=== PATIENT | female | born 1970 | race Caucasian/White ===

== ENCOUNTER → 2017-03-28 15:26 | Outpatient (CLI) | payer BC, SELFPAY ==
[2017-03-31 15:57] LABS: HPV Reflexed? NOT INDICATED
== END ==
PROVIDERS: Visit Provider Obstetrics & Gynecology
DX: Z12.4 Encounter for screening for malignant neoplasm of cervix (principal)
CPT/HCPCS: 88175; G0145

== ENCOUNTER → 2017-05-10 12:10 | Outpatient (CLI) | payer BC, SELFPAY ==
--- NOTE | 2017-05-10 12:20 | HPBI_ITS ---
MAMMOGRAPHY - BILATERAL SCREENING REASON FOR EXAM: Female, 47 years old. Routine annual screening examination. PERTINENT HISTORY: Mother with breast cancer. Aunt with breast cancer. TECHNIQUE: Digital bilateral breast jossy (3D mammographic acquisition) in the CC and MLO projections. 2-D mediolateral oblique (MLO) and craniocaudad (CC) views of both breasts were obtained. CAD: Full Field Digital Mammography with Computer Added Detection was performed. COMPARISON: Comparison is made with prior study dated April 08, 2016 and July 23, 2014. FINDINGS: Breast Composition: The breasts are heterogeneously dense, which may obscure small masses. There are no dominant masses or suspicious calcifications. Stable bilateral benign-appearing axillary lymph nodes. No other significant abnormalities are identified. There has been no significant change since the prior study. HPBI/SCREENING MAMM (CAD), BILAT IMPRESSION: Stable bilateral screening mammogram. Yearly follow-up mammogram recommended. (A) ASSESSMENT CATEGORY: BIRADS Category 2: Benign. A letter regarding these results will be sent to the patient by the facility within 30 days. Approximately 10% of breast cancers are not detected by mammography. A normal mammogram should not delay biopsy of a clinically suspicious abnormality. [id number] Electronically Signed: Bala Urrutia MD at 8:38 EDT Tel [phone], Service support ,
== END ==
PROVIDERS: Family Provider Family Medicine; PCP Family Medicine; Visit Provider Obstetrics & Gynecology
DX: Z12.31 Encounter for screening mammogram for malignant neoplasm of breast (principal); Z80.3 Family history of malignant neoplasm of breast
CPT/HCPCS: 77063; 77067

== ENCOUNTER → 2018-04-17 11:49 | Outpatient (CLI) | payer BC, SELFPAY ==
[2018-04-19 14:40] LABS: HPV Reflexed? NOT INDICATED
== END ==
PROVIDERS: Visit Provider Obstetrics & Gynecology
DX: Z12.4 Encounter for screening for malignant neoplasm of cervix (principal)
CPT/HCPCS: 88175; G0145

== ENCOUNTER → 2018-05-22 10:28 | Outpatient (CLI) | payer BC, SELFPAY ==
--- NOTE | 2018-05-22 10:31 | BI_ITS ---
MAMMOGRAPHY - BILATERAL SCREENING REASON FOR EXAM: Female, 48 years old. Routine annual screening examination. PERTINENT HISTORY: Sister with breast cancer. Aunt with breast cancer. TECHNIQUE: Digital bilateral breast jossy (3D mammographic acquisition) in the CC and MLO projections. 2-D mediolateral oblique (MLO) and craniocaudad (CC) views of both breasts were obtained. CAD: Full Field Digital Mammography with Computer Added Detection was performed. COMPARISON: Comparison is made with prior study dated May 10, 2017 and April 08, 2016. FINDINGS: Breast Composition: The breasts are heterogeneously dense, which may obscure small masses. There are no dominant masses or suspicious calcifications. Stable small benign-appearing bilateral axillary lymph nodes. No other significant abnormalities are identified. There has been no significant change since the prior study. BI/SCREENING MAMM (CAD), BILAT IMPRESSION: Stable bilateral screening mammogram. Yearly follow-up mammogram recommended. (A) ASSESSMENT CATEGORY: BIRADS Category 2: Benign. A letter regarding these results will be sent to the patient by the facility within 30 days. Approximately 10% of breast cancers are not detected by mammography. A normal mammogram should not delay biopsy of a clinically suspicious abnormality. [id number] Electronically Signed: Bala Urrutia, at 12:52 EDT , Service support ,
== END ==
PROVIDERS: Family Provider Family Medicine; PCP Family Medicine; Referring Provider Obstetrics & Gynecology; Visit Provider Obstetrics & Gynecology
DX: Z12.31 Encounter for screening mammogram for malignant neoplasm of breast (principal)
CPT/HCPCS: 77063; 77067

== ENCOUNTER 2018-09-05 06:18 | Day surgery (SDC) | payer BC, SELFPAY ==
[2018-08-31 07:29] VITALS: BMI 29.5
[2018-09-05] VITALS (9 sets, daily range): BP systolic 116–186; BP diastolic 74–116; PULSE 78–107; RESP 14–18; TEMP 36.3–36.8; O2SAT 92–100; BMI 29.2
--- NOTE | 2018-09-05 | IMM_PTH ---
PATIENT: KENJI JOEL LOC: [facility] U#:[id number] AGE/SX: 48/F ROOM: RE09/05/[address]: Dr. Pradeep Davenport MD : 1970 BED: DIS: 09/05/2018 SPEC #: [id number] RECD: 09/05/18 14:07 STATUS: [place] GA #: [id number] CASEY: 09/05/18 00:[address]: Pradeep Davenport DEPT: IMMUNOHISTOCHEMISTRY RECD BY: Julian Mata ENTERED: 09/05/18 14:09 SP TYPE: IMMUNO OTHR DR: Dr. Pearl Mathew MD Tissues: Gastric mucous membrane Procedures: H Pylori (initial) PHYSICIAN & [place] [id number] SPECIMEN INFORMATION: Tissue Source: B. Antrum biopsy Clinical Info: Epigastric pain, GERD Specimen Number: [id number] CPT code: 27484 METHODOLOGY: Deparaffinized sections of prefer/formalin-fixed tissue or PAP/DQ stained slides are incubated with monoclonal/polyclonal antibodies/oligonucleotide probes. Localization is made via biotin free immunoperoxidase method. Appropriate controls are performed and reacted as expected. Results on target cell population are indicated in the following table: RESULTS: ANTIBODY / CLONE RESULT Block B H Pylori (polyclonal) negative These tests were developed and their performance characteristics determined by [facility]. They may not have been cleared or approved by the U.S. Food and Drug Administration. The FDA has determined that such clearance or approval is not necessary. INTERPRETATION: B. Antrum, biopsy: Negative for Helicobacter pylori organisms. SJ:ulices 09/06/18
--- NOTE | 2018-09-05 | EGD_PTH ---
PATIENT: KENJI JOEL LOC: [facility] U#:[id number] AGE/SX: 48/F ROOM: RE09/05/[address]: Dr. Pradeep Davenport MD : 1970 BED: DIS: 09/05/2018 SPEC #: [id number] RECD: 09/05/18 12:48 STATUS: [place] GA #: [id number] CASEY: 09/05/18 00:[address]: Pradeep Davenport DEPT: SURGICAL PATHOLOGY RECD BY: David Cantrell ENTERED: 09/05/18 12:49 SP TYPE: EGD BIOPSY ISSAC DR: Dr. Pearl Mathew MD Tissues: A - Duodenum, NOS B - Gastric mucous membrane C - Esophagus, NOS D - Esophagus, NOS Procedures: Surgery Specimen Level IV HEADER OPERATION: EGD MOD PRE-OP DIAGNOSIS: Epigastric pain, GERD TISSUE SUBMITTED: A. Duodenum biopsy, B. Antrum biopsy, C. Distal esophagus biopsy, D. Mid esophagus biopsy MICROSCOPIC DIAGNOSIS A. Duodenum, biopsy: A superficial fragment of small intestinal mucosa, no pathologic diagnosis. B. Antrum, biopsy: Mild gastritis. C. Distal esophagus, biopsy: Fragments of the gastroesophageal mucosa with chronic inflammation. Intestinal metaplasia (Goblet cell metaplasia) not identified. See Comment D. Mid esophagus, biopsy: Fragments of squamous epithelium, no pathologic diagnosis. SJ:iglesia 09/06/18 COMMENT B. The results of immunohistochemistry for Helicobacter pylori will be reported separately ([id number]). C. Alcian blue/PAS stain with matched control is used in the evaluation of the specimen. MICROSCOPIC DESCRIPTION Slides are reviewed. The specimen shows fragments of gastric mucosa with chronic inflammatory cell infiltrates in the lamina propria consisting of lymphocytes and plasma cells, consistent with mild chronic gastritis. GROSS DESCRIPTION A. Received is one container labeled with the patient name and designated duodenum biopsy. The specimen consists of one irregular fragment of light wise soft tissue that measures 0.3 x 0.2 x 0.1 cm. The specimen is totally submitted in one cassette. B. Received is one container labeled with the patient name and designated antrum biopsy. The specimen consists of one irregular fragment of light wise soft tissue that measures 0.3 x 0.3 x 0.1 cm. The specimen is totally submitted in one cassette. C. Received is one container labeled with the patient name and designated distal esophagus biopsy. The specimen consists of two irregular fragment of light wise soft tissue that in aggregate measures 0.3 x 0.3 x 0.1 cm. The specimen is totally submitted in one cassette. D. Received is one container labeled with the patient name and designated mid esophagus biopsy. The specimen consists of multiple irregular fragment of light wise soft tissue that in aggregate measures 0.4 x 0.4 x 0.1 cm. The specimen is totally submitted in one cassette. /SJ:sp 09/05/18 TC: 3 CPT: 85170 x4, 05354
--- NOTE | 2018-09-05 06:02 | PCM.HP.BLA ---
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 Is patient in pain?: No Allergies No Known Allergies Allergy (Verified 08/31/18 07:30) Medications famotidine 40 mg tablet 40 mg PO QHS 08/31/18 [History Confirmed 08/31/18] [facility] Medical History Gallbladder problem (Acute) Seasonal allergies (Acute) Acid reflux (Acute) Anxiety (Acute) Surgical History History of placement of ear tubes (Acute) Family History Mother Breast cancer Hypertension High cholesterol Father High cholesterol Hypertension Social History (Updated 08/31/18 @ 08:05 by Pradeep Davenport MD) Smoking Status: Former smoker alcohol intake: current alcohol intake frequency: a few times a month substance use type: does not use caffeine: No what type of physical activity do you participate in: none frequency: does not exercise HPI HPI HPI: KENJI JOEL, is a 48 F who presents to the office today for HPI HPI Surgical H&P: Yes HPI: KENJI JOEL, is a 48 F who presents to the office today for surgical consultation regarding episodes of epigastric right upper quadrant pain and bloating. The patient is referred by Dr. Pearl Mathew and a written compromise surgical consult and recommendations will return to her. In May the patient had a sudden onset of what felt like a gas pocket in the right upper quadrant. She wanted to try to relieve it by burping but was unable to. 2 months later she had another episode and that when lasted for 5 to 6 hours. She did not take any medications in attempt to resolve it it simply resolved on its own. Over the past year however the patient has additionally noted increased symptoms of indigestion and reflux. In fact recently she has been initiated on famotidine. She denies any known history of peptic ulcer disease. No bright red blood per rectum or melena. On July 12, 2018 she had a right upper quadrant gallbladder ultrasound. No gallstones were identified. There is a suspicion of gallbladder wall thickening at 3.8 mm but no pericholecystic fluid. Common bile duct measured 4 mm. My understanding is that laboratory was not remarkable but I do not have copies of that. On that same day July 12 she had a hepatobiliary scan. She states that she was completely asymptomatic throughout that scan. Her ejection fraction was 29%. Abnormal is felt to be a low 38%. The patient has changed to a gluten-free diet and feels better. She has had an intentional 7 pound weight loss. She denies any current pain at this moment. ROS General General: Yes weight change; no appetite, fatigue, colon cancer, breast cancer or weakness HEENT HEENT: No difficulty swallowing, eye injury, eye surgery, swollen glands or hoarseness Endo Endocrine: No thyroid disease, diabetes mellitus, thyroid cancer, Hair loss, heat intolerance or cold intolerance Skin Skin: No rash or changing moles Musc Musculoskeletal: No back problems, arthritis, rheumatoid arthritis, gout or joint pain Cardio Cardiovascular: No murmur, pacemaker, heart disease, atrial fibrillation, high blood pressure, heart attack, heart stent, palpitations, shortness of breat with exertion or chest pain Psych Psychiatric: Yes anxiety; no depression or hearing voices Resp Respiratory: No shortness of breath, No sleep apnea, No cough, No COPD, No asthma, No emphysema, No wheezing Gastro Gastrointestinal: No abdominal pain, No nausea or vomiting, No diarrhea, No constipation, No blood in stool, Yes acid reflux, No hemorrhoids, Yes ulcers, No gallbladder problem, No black,tarry stools Andrew Hematologic: No blood thinners, No blood disorders, No bleeding, No anemia, No blood clots Neuro Neurologic: No system reviewed and no additional complaints, except as docu, No as per HPI, No abnormal walking, No abnormal hearing, No abnormal movements, No abnormal speech, No behavioral changes, No burning sensations, No confusion, No seizure-like activity, No unsteadiness, No dizziness, No localized weakness, No frequent falls, No headache(s), No lack of coordination, No loss of vision, No memory loss, No numbness, No other visual disturbances, No radiating pain, No restless legs, No sensory deficit, No fainting, No tingling, No tremor(s), No weakness, No other Exam Const General: cooperative, healthy appearing, comfortable, no acute distress Nutritional Appearance: average body habitus Orientation: alert, awake [facility] Head: normal to inspection Resp Effort & Inspection: normal respiratory effort Auscultation: clear to auscultation bilaterally Cardio Rate: regular rate Rhythm: regular rhythm Heart Sounds: no murmurs GI Palpation: soft, no hepatosplenomegaly Auscultation: normal bowel sounds Neuro General: alert, awake Cognition: normal cognition Extrem General: no calf tenderness bilaterally Psych Affect: normal affect Assessment & Plan Problems 1. Gastroesophageal reflux disease, esophagitis presence not specified K21.9 2. Gallbladder problem K82.9 Plan I had an extensive discussion with the patient regarding her symptom complex. Although her symptoms were colicky in nature her ultrasound did not demonstrate gallstones. She had no elicitation of similar symptoms when she received a CCK for her HIDA scan. She does have progressive symptoms of reflux that required new medication. I have offered her a esophagogastroduodenoscopy with possible biopsy as an initial investigation. If that is unremarkable and I have offered her lap scopic cholecystectomy with anticipated cholangiography. She is aware of the technique, benefit, risks, alternatives. She is aware that laparoscopic cholecystectomy based upon abnormal hepatobiliary imaging has approximately 50% failure rate of improving patient condition. She has had an opportunity of asking and have questions answered. I very much appreciate the kind opportunity of assisting with her surgical care We will schedule proceed at her discretion CC: Dr. Pearl Davenport M.D., F.A.C.S. Medications New: famotidine (Pepcid) 40 mg PO QHS Coding Level of Care Code 20883 Diagnoses Gastroesophageal reflux disease, esophagitis presence not specified K21.9 ??Esophagitis presence: esophagitis presence not specified Gallbladder problem K82.9 08/31/18 0805 <Electronically signed by Pradeep Davenport MD> Date Pradeep Davenport MD I have re-examined the patient. There are no clinical changes since date of exam.
[2018-09-05 07:06] LABS: Internal QC Validated? YES +Cl - CLEAR BKGD; Pregnancy, Urine Negative Negative
--- NOTE | 2018-09-05 07:44 | OP.ENDO_ITS ---
09/05/2018 Pearl Mathew Md Re : Upper GI endoscopy procedure for Smita Valencia Dear [place] This procedure was performed on Wednesday, September 05, 2018. My impressions and recommendations are as follows: Impressions : - Normal esophagus. Biopsied. - Normal stomach. Biopsied. - Normal examined duodenum. Biopsied. Recommendations : - Discharge patient to home. - Resume previous diet. - Continue present medications. - Telephone my office for pathology results in 1 week. My findings are described in the full procedure note, which is enclosed. If I can be of further assistance, please feel free to contact me at Doctor phone number(s): Work: . Sincerely, Pradeep Davenport MD 09/05/2018 7:43:54 AM This report has been signed electronically.
== END 2018-09-05 08:40 | disposition home or self-care (01) ==
LOC: EN 06:21 → AC 06:22
PROVIDERS: Family Provider Family Medicine; PCP Family Medicine; Referring Provider Family Medicine; Visit Provider Surgery
PROC: (CPT 43239; principal; 2018-09-05 07:25)
DX: R10.13 Epigastric pain (principal); R10.11 Right upper quadrant pain; K82.9 Disease of gallbladder, unspecified; K21.9 Gastro-esophageal reflux disease without esophagitis; Z87.891 Personal history of nicotine dependence
CPT/HCPCS: 43239; 81025; 88305; 88342; 99152; 99153; J7120

== ENCOUNTER 2018-10-26 08:47 | Day surgery (SDC) | payer BC, SELFPAY ==
[2018-09-05 06:57] VITALS: BMI 29.2
[2018-10-23 08:58] VITALS: BMI 29.2
--- NOTE | 2018-10-23 09:52 | EKG12_ITS ---
Test Reason : PRE-OP Blood Pressure : / mmHG Vent. Rate : 082 BPM Atrial Rate : 082 BPM P-R Int : 128 ms QRS Dur : 076 ms QT Int : 336 ms P-R-T Axes : 035 014 018 degrees QTc Int : 392 ms Normal sinus rhythm Normal ECG Confirmed by KAT HUTTON, MANDA ([id number]), supervising editor news reel CARLOTA PINEDA ([id number]) on 10/24/2018 11:41:06 AM Referred By: Pradeep Davenport Confirmed By:MANDA STEPHENS MD
[2018-10-23 10:05] LABS: Hematocrit 45.1 % (37-47); Hemoglobin 14.4 g/dL (12.0-15.0); Mean Corp Hgb Conc 31.9 g/dL (32-36); Mean Corpuscular Hgb 28.9 pg (27.0-32.0); Mean Corpuscular Volume 90.4 fL (81-99); Mean Platelet Vol. 10.1 fl (6.2-12.0); Platelet Count 363 K/mm3 (150-450); RBC Distribution Width CV 12.5 % (11.6-14.6); RBC Distribution Width SD 41.3 fl (35.1-43.9); Red Blood Count 4.99 M/mm3 (4.2-5.4); White Blood Count 6.5 K/mm3 (4.4-11.0)
[2018-10-23 10:51] LABS: Anion Gap 4 (5-15); BUN 12 mg/dL (7-18); BUN/Creat Ratio 13.9 RATIO (10-20); Calcium,Total 9.7 mg/dL (8.5-10.1); Chloride 106 mmol/L (98-107); Creatinine, Serum 0.86 mg/dL (0.55-1.02); EST Glomerular Filtration Rate 75 mL/min (>60); Est Glom Filt Rate - Afr Amer 91 mL/min (>60); Glucose 82 mg/dL (74-106); Sodium Level 138 mmol/L (136-145)
[2018-10-26] VITALS (10 sets, daily range): BP systolic 109–139; BP diastolic 61–81; PULSE 82–102; RESP 10–18; TEMP 36.3–37.2; O2SAT 97–100; BMI 27.5
[2018-10-26 09:05] LABS: Internal QC Validated? YES +Cl - CLEAR BKGD; Pregnancy, Urine Negative Negative
[2018-10-26] MEDS: Lactated Ringers 1,000 ML 75 ML IV ×2 (09:15→12:58)
--- NOTE | 2018-10-26 10:49 | HP.PCM_ITS ---
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 Is patient in pain?: No Allergies cold Allergy (Uncoded 10/23/18 08:42) Hives Medications famotidine 40 mg tablet 40 mg PO QHS 08/31/18 [History Confirmed 10/23/18] [facility] Medical History Gallbladder problem (Acute) Seasonal allergies (Acute) Acid reflux (Acute) Anxiety (Acute) Surgical History History of placement of ear tubes (Acute) Family History Mother Breast cancer Hypertension High cholesterol Father High cholesterol Hypertension Social History (Updated 10/23/18 @ 15:11 by Minna Mckeon PA-C) Smoking Status: Former smoker alcohol intake: current alcohol intake frequency: a few times a month substance use type: does not use caffeine: No what type of physical activity do you participate in: none frequency: does not exercise HPI HPI HPI: KENJI JOEL, is a 48 F who presents to the office today for HPI HPI Surgical H&P: Yes HPI: KENJI JOEL, is a 48 F who presents to the office today for an update history and physical for an upcoming surgical procedure. Patient denies recent hospitalizations or illnesses. Patient denies previous myocardial infarction, stroke or blood clots. Patient denies being seen by blending tank tender previously. Patient notes she is anxious for the procedure. Patient denies previous complications/side effects from anesthesia. Patient's previous history per Dr. Davenport: KENJI JOEL, is a 48 F who presents to the office today for surgical consultation regarding episodes of epigastric right upper quadrant pain and bloating. The patient is referred by Dr. Pearl Mathew and a written compromise surgical consult and recommendations will return to her. In May the patient had a sudden onset of what felt like a gas pocket in the right upper quadrant. She wanted to try to relieve it by burping but was unable to. 2 months later she had another episode and that when lasted for 5 to 6 hours. She did not take any medications in attempt to resolve it it simply resolved on its own. Over the past year however the patient has additionally noted increased symptoms of indigestion and reflux. In fact recently she has been initiated on famotidine. She denies any known history of peptic ulcer disease. No bright red blood per rectum or melena. On July 12, 2018 she had a right upper quadrant gallbladder ultrasound. No gallstones were identified. There is a suspicion of gallbladder wall thickening at 3.8 mm but no pericholecystic fluid. Common bile duct measured 4 mm. My u nderstanding is that laboratory was not remarkable but I do not have copies of that. On that same day July 12 she had a hepatobiliary scan. She states that she was completely asymptomatic throughout that scan. Her ejection fraction was 29%. Abnormal is felt to be a low 38%. The patient has changed to a gluten-free diet and feels better. She has had an intentional 7 pound weight loss. She denies any current pain at this moment. ROS General General: Yes weight change; no appetite, fatigue, colon cancer, breast cancer or weakness HEENT HEENT: No difficulty swallowing, eye injury, eye surgery, swollen glands or hoarseness Endo Endocrine: No thyroid disease, diabetes mellitus, thyroid cancer, Hair loss, heat intolerance or cold intolerance Skin Skin: No rash or changing moles Musc Musculoskeletal: No back problems, arthritis, rheumatoid arthritis, gout or joint pain Cardio Cardiovascular: No murmur, pacemaker, heart disease, atrial fibrillation, high blood pressure, heart attack, heart stent, palpitations, shortness of breat with exertion or chest pain Psych Psychiatric: Yes anxiety; no depression or hearing voices Resp Respiratory: No shortness of breath, No sleep apnea, No cough, No COPD, No asthma, No emphysema, No wheezing Gastro Gastrointestinal: No abdominal pain, No nausea or vomiting, No diarrhea, No constipation, No blood in stool, Yes acid reflux, No hemorrhoids, Yes ulcers, No gallbladder problem, No black,tarry stools Andrew Hematologic: No blood thinners, No blood disorders, No bleeding, No anemia, No blood clots Neuro Neurologic: No weakness Exam Const General: cooperative, healthy appearing, comfortable, no acute distress HENMT Head: normal to inspection Eyes General: appearance normal, both eyes and all related structures Neck Neck: normal visual inspection Neck mass: No Resp Effort & Inspection: normal respiratory effort Auscultation: clear to auscultation bilaterally Cardio Rate: regular rate Rhythm: regular rhythm Heart Sounds: no murmurs GI Inspection: normal to inspection Palpation: soft Auscultation: normal bowel sounds Skin General: no rashes or lesions noted Neuro General: no focal motor deficits, CN's II-XI intact bilaterally Extrem General: normal to inspection Psych Appearance: grossly normal Affect: normal affect Assessment & Plan Problems 1. Epigastric abdominal pain R10.[address] Davenport will plan to perform a laparoscopic cholecystectomy with intraoperative cholangiogram. Procedure details, risks and benefits have been reviewed. Patient has had the opportunity to ask and have questions answered. Patient verbally understands and agrees with the plan. Coding Level of Care Code No Charge Diagnoses Epigastric abdominal pain R10.13 Comment Update H&P 10/23/18 3928 <Electronically signed by Minna stephens PA-C> Date _ Minna Mckeon PA-C Cosigner Signature: Date (if applicable) CC: ~ I have re-examined the patient. There are no clinical changes since date of exam.
[2018-10-26] MEDS: Cefazolin 2 GM in 0.9% Normal Saline 100 ML IV (10:57)
--- NOTE | 2018-10-26 11:00 | GALL_PTH ---
PATIENT: KENJI JOEL LOC: [facility] [place] U#:[id number] AGE/SX: 48/F ROOM: RE10/26/[address]: Dr. Pradeep Davenport MD : 1970 BED: DIS: 10/26/2018 SPEC #: [id number] RECD: 10/26/18 14:26 STATUS: [place] GA #: [id number] CASEY: 10/26/18 11:[address]: Pradeep Davenport DEPT: SURGICAL PATHOLOGY RECD BY: Caleb Kenney ENTERED: 10/26/18 14:27 SP TYPE: NEGRITA DAVENPORT DR: Dr. Pearl Mathew MD Tissues: Gallbladder, NOS Procedures: Surgery Specimen Level III HEADER OPERATION: Laparoscopic cholecystectomy with IOC PRE-OP DIAGNOSIS: Epigastric abdominal pain TISSUE SUBMITTED: Gallbladder MICROSCOPIC DIAGNOSIS Gallbladder, cholecystectomy: Chronic cholecystitis. AM:greg 10/27/18 MICROSCOPIC DESCRIPTION Slides are reviewed. GROSS DESCRIPTION Received is one container labeled with the patient's name and designated gallbladder. The specimen consists of a gallbladder measuring 7 cm in length and up to 2.5 cm in diameter. The external surface is pink-wise, smooth and glistening for the most part. Focally it is granular, hemorrhagic and contains cautery artifact. The gallbladder contains green-yellow mucoid bile. No stones are identified in the container or in the gallbladder. The mucosa is bile-stained and without any mass lesions. The gallbladder wall measures up to 0.2 cm in thickness. Generation Mechanic Helper sections from the gallbladder and the cystic duct are submitted in one cassette. / SJ:rg 10/26/18 TC:3 CPT: 99500
--- NOTE | 2018-10-26 11:16 | RAD_ITS ---
PROCEDURE: INTRAOPERATIVE CHOLANGIOGRAM. REASON FOR EXAM: Female, 48 years old. Cholecystectomy. FLUOROSCOPY TIME (if supplied): (0:25) minutes/seconds. RADIATION DOSAGE (If Supplied By Facility): 12.81 mGy TECHNIQUE: Real-time fluoroscopy was provided during intraoperative contrast infusion via the cystic duct. 2 cine runs comprising a total of 181 images are submitted. COMPARISON: None.. FINDINGS: Initial cine run does not demonstrate a contrast injection. A surgical clip projects in the right upper quadrant. A second run shows normal caliber intra-and extrahepatic bile ducts. There is moderately severe concentric narrowing at the distal common bile duct/sphincter of Gerardo with very slow contrast flow to the duodenum. No filling defects seen to indicate a retained stone, however. RAD/Cholangiogram/ O R,Initial IMPRESSION: No significant intra or extrahepatic bile duct dilatation. No retained stone. Moderately severe concentric narrowing seen at the distal common bile duct/sphincter of Gerardo with very slow antegrade emptying. Electronically Signed: Fer Gutiérrez MD at 16:45 EDT , Service support ,
[2018-10-26] MEDS: Bupivacaine Mpf 0.5% 30 ML VIAL (12:04)
--- NOTE | 2018-10-26 12:07 | DCINST_ITS ---
Discharge Diet: Light diet - advance as tolerated - if you have questions about your diet instructions, please talk to you doctor. Discharge Activity: May Not Drive - for 3-5days or while taking narcotic pain medicine. May shower in (days): 1 Lifting Restrictions: 10 pounds Call your doctor if your incision/area has: Continuous Slow Oozing, Sudden Increased Bleeding, Increased Pain/ Swelling, Increased Redness, Foul Smelling Discharge Call your doctor if you observe: Fever of 101 or Higher Suture Line Care: Avoid Pulling/Pushing, Avoid Pinching/Bending Additional Dressing/Incision Instructions:: Change or remove dressing in 4 days. Leave steri-strips in place for 1 week. Allergies/Adverse Reactions: Allergies cold Allergy (Uncoded 10/26/18 08:55) Hives Medications to take at Discharge famotidine 40 mg tablet 40 mg PO QHS 08/31/18 Orders to be completed after discharge: 12 Lead EKG [[facility]] Time Frame: 10/19/18, Facility: [facility], Location: Cardiovascular Services Basic Metabolic Profile (BMP) Time Frame: 10/19/18, Facility: [facility], Location: Laboratory CBC-Complete Blood Cnt No Diff Time Frame: 10/19/18, Facility: [facility], Location: Laboratory Primary Care Physician: Pearl Mathew MD [Primary Care Provider] - Test Results: Test results from this visit will be discussed in further detail at your follow- up appointment, if applicable. Please Follow Up With: Pradeep Davenport MD - [phone] When: Call to make an appointment to be seen in about 10 days.
--- NOTE | 2018-10-26 12:07 | PCM.OPRPT ---
Problem List (1) Gallbladder problem Status: Acute Report of Operation Date of Procedure: 10/26/18 Pre-Operative Diagnosis: Biliary dyskinesia Post-Operative Diagnosis: Same Surgery/Procedure Performed:: Laparoscopic cholecystectomy with cholangiograms Description of Surgical Findings:: Timeout and informed consent was obtained. 48-year-old female taken out from placement table underwent general endotracheal intubation anesthesia. The abdomen was sterilely prepped and draped. 2 g of Ancef were given intravenously preoperatively. 0.5% Marcaine was used as a local anesthetic. Skin sites were pre-anesthetized. A total of 30 cc was used. A vertical infraumbilical incision was created holding sutures of 0 Vicryl placed varies needle inserted saline drop test performed the abdomen was insufflated with CO2 to a pressure of 10 mm trocar pressure. Maria T trocar inserted 10 laps of inserted no concern trocar injuries under direct visualization 5-minute trochars were placed in the epigastric right upper quadrant right lateral upper quadrant. Inspection revealed adhesions of omentum to the gallbladder. There was no acute swelling or fluid. No evidence of other superficial abnormality. The gallbladder was distracted the adhesions were sharply and bluntly dissected free. This gain access to the infundibular area careful blunt dissection was performed until clearly the cystic duct cystic artery and hepatocystic angle was fully identified. Hem-o-bernardino clip was placed on the cystic duct stump prior to incising it and through a 14-gauge Angiocath clench Flex catheter was inserted. Fluoroscopically control claims grams were obtained demonstrating normal ductal anatomy and flow just into the small bowel was identified. No evidence of any intraluminal filling defect. The cholangiogram catheter was removed 2 hemo-lock clips were placed on the cystic duct stump prior to transecting it. The cystic artery was clipped twice approximately prior to transecting it. Further gallbladder peritoneum was secured with a hemo-lock clip. The gallbladder was carefully dissected free from the liver bed using electrocautery. Complete hemostasis was intact. The gallbladder was released with no spillage. It was placed in a retrieval bag. The right upper quadrant was irrigated and aspirated free of excess fluid. Complete hemostasis was noted. The gallbladder was exited at the umbilicus. The gallbladder bed again inspected and again noted to be nicely hemostatic. The remaining trochars were removed under visualization and the abdomen was allowed to deflate of the CO2. The fascia at the umbilicus approximate interrupted 0 Vicryl [id number] suture. Skin edges approximate interrupted 4 Monocryl subdermal stitches. Steri-Strips and Telfa and OpSite dressings were applied. Sponge and instrument and needle counts were reported the surgeon to be correct. Specimen gallbladder. Drains none. Blood loss minimal. Pradeep Davenport M.D., F.A.C.S. Type of Anesthesia:: General Anesthesiologist: Brook Beavers
[2018-10-26] MEDS: Acetaminophen 325 MG Tablet 650 MG PO (14:09)
== END 2018-10-26 15:05 | disposition home or self-care (01) ==
LOC: SDC 08:48 → AC 08:48
PROVIDERS: Anesthesiology; Family Provider Family Medicine; PCP Family Medicine; Referring Provider Surgery; Visit Provider Surgery
PROC: (CPT 47610; principal; 2018-10-26 10:40)
DX: K81.1 Chronic cholecystitis (principal); K21.9 Gastro-esophageal reflux disease without esophagitis; Z87.891 Personal history of nicotine dependence
CPT/HCPCS: 00790; 47563; 36415; 74300; 76000; 80048; 81025; 85027; 88304; 93005; J7120; J2405

== ENCOUNTER → 2019-07-27 15:08 | Outpatient (CLI) | payer BC, SELFPAY ==
[2019-07-27 15:08] VITALS: BMI 27.5
[2019-08-01 20:45] LABS: HPV APTIMA, High Risk Negative (Negative)
== END ==
PROVIDERS: PCP Family Medicine; Visit Provider Obstetrics & Gynecology
DX: Z12.4 Encounter for screening for malignant neoplasm of cervix (principal)
CPT/HCPCS: 87624; 88175; G0145

== ENCOUNTER → 2019-08-22 10:37 | Outpatient (CLI) | payer BC, SELFPAY ==
[2019-07-27 15:08] VITALS: BMI 27.5
--- NOTE | 2019-08-22 10:40 | BI_ITS ---
MAMMOGRAPHY - BILATERAL SCREENING REASON FOR EXAM: Female, 49 years old. Routine annual screening examination. PERTINENT HISTORY: Sister with breast cancer. Aunt with breast cancer. TECHNIQUE: Digital bilateral breast jesus (3D mammographic acquisition) in the CC and MLO projections. 2-D mediolateral oblique (MLO) and craniocaudad (CC) views of both breasts were obtained. CAD: Full Field Digital Mammography with Computer Added Detection was performed. COMPARISON: Comparison is made with prior examination May 22, 2018 and May 10, 2017. FINDINGS: Breast Composition: The breasts are heterogeneously dense, which may obscure small masses. There are no dominant masses or suspicious calcifications. Stable benign-appearing bilateral axillary lymph nodes. No other significant abnormalities are identified. There has been no significant change since the prior study. BI/SCREEN MAMM (CAD) W/JESUS BILAT IMPRESSION: Stable bilateral screening mammogram. Yearly follow-up mammogram recommended. (A) ASSESSMENT CATEGORY: BIRADS Category 2: Benign. A letter regarding these results will be sent to the patient by the facility within 30 days. Approximately 10% of breast cancers are not detected by mammography. A normal mammogram should not delay biopsy of a clinically suspicious abnormality. [id number] Electronically Signed: Bala Urrutia, at 11:36 EDT , Service support ,
== END ==
PROVIDERS: PCP Family Medicine; Referring Provider Obstetrics & Gynecology; Visit Provider Obstetrics & Gynecology
DX: Z12.31 Encounter for screening mammogram for malignant neoplasm of breast (principal); Z80.3 Family history of malignant neoplasm of breast
CPT/HCPCS: 77063; 77067

== ENCOUNTER → 2020-09-16 07:35 | Outpatient (CLI) | payer OTHER, SELFPAY ==
[2019-07-27 15:08] VITALS: BMI 27.5
--- NOTE | 2020-09-16 07:37 | BI_ITS ---
MAMMOGRAPHY - BILATERAL SCREENING REASON FOR EXAM: Female, 50 years old. Routine annual screening examination. PERTINENT HISTORY: Mother with breast cancer. On post breast cancer. TECHNIQUE: Digital bilateral breast jesus (3D mammographic acquisition) in the CC and MLO projections. 2-D mediolateral oblique (MLO) and craniocaudad (CC) views of both breasts were obtained. CAD: Full Field Digital Mammography with Computer Added Detection was performed. COMPARISON: Comparison is made with prior examination dated 08/22/2019 and 05/22/2018. FINDINGS: Breast Composition: The breasts are heterogeneously dense, which may obscure small masses. There are no dominant masses or suspicious calcifications. Stable benign appearing bilateral axillary. No other significant abnormalities are identified. There has been no significant change since the prior study. BI/SCRN MAMM (CAD)W/JESUS BILAT IMPRESSION: Stable bilateral screening mammogram. Yearly follow-up mammogram recommended. (A) ASSESSMENT CATEGORY: BIRADS Category 2: Benign. A letter regarding these results will be sent to the patient by the facility within 30 days. Approximately 10% of breast cancers are not detected by mammography. A normal mammogram should not delay biopsy of a clinically suspicious abnormality. [id number] Electronically Signed: Bala Urrutia MD at 8:42 EDT , Service support ,
--- NOTE | 2020-09-16 08:05 | BD_ITS ---
STUDY: DUAL ENERGY X-RAY ABSORPTIOMETRY / DXA REASON FOR EXAM: Female, 50 years old. Z92.0 TECHNIQUE: Bone Mineral Density (BMD) measurements of lumbar spine and bilateral hips were obtained. COMPARISON: None. FINDINGS: Lumbar Spine (L1-L4): g/cm2 (1.065) / T-score (0.1) / Z-score (0.8) Findings are suggestive of normal bone density with a low fracture risk. Left Femur Total: g/cm2 (1.025) / T-score (0.7) / Z-score (1.1) Left Femoral Neck: g/cm2 (0.846) / T-score (0.0) / Z-score (0.6) Right Femur Total: g/cm2 (0.979) / T-score (0.3) / Z-score (0.7) Right Femoral Neck: g/cm2 (0.876) / T-score (0.2) / Z-score (0.9) BD/Dexa Bone Density Study IMPRESSION: The patient is considered normal as outlined below according to World Manuel Organization (WHO) criteria with a low fracture risk. Reference Information: The T-score is the number of standard deviations above or below the standard which is normal for young adults at their peak bone mineral density. The World Health Organization (WHO) interprets the T-scores as follows: Above -1 Normal bone density Between -1 and -2.5 Osteopenia Equal to / or below -2.5 Osteoporosis As a practical clinical guideline, osteopenia may be graded as follows: Mild -1 through -1.5 Moderate -1.6 through -2.0 Severe -2.1 through -2.4 The Z-score is the number of standard deviations above or below age-matched controls. A Z-score of less than -1.5 would be considered abnormal. References: 1. NIH Osteoporosis and Related Bone Diseases www osteo.org 2. International Society for Clinical Densitometry www iscd.org 3. National Osteoporosis Foundation www nof.org Electronically Signed: Bala Urrutia MD at 15:03 EDT , Service support ,
== END ==
PROVIDERS: PCP Family Medicine; Referring Provider Obstetrics & Gynecology; Visit Provider Obstetrics & Gynecology
DX: Z92.0 Personal history of contraception (principal); Z12.31 Encounter for screening mammogram for malignant neoplasm of breast; Z80.3 Family history of malignant neoplasm of breast
CPT/HCPCS: 77063; 77067; 77080

== ENCOUNTER → 2020-10-17 10:04 | Outpatient (CLI) | payer OTHER, SELFPAY ==
--- NOTE | 2020-10-17 10:45 | MRI_ITS ---
STUDY: MRI LUMBAR SPINE WITHOUT CONTRAST REASON FOR EXAM: Female, 50 years old. acquired spondylolisthesis -- radiculopathy TECHNIQUE: Standardized fat and water weighted pulse sequences were obtained in the sagittal and axial planes. COMPARISON: None FINDINGS: T12-L1: Normal endplates. Normal disc height, hydration and morphology. Normal bilateral facet joints. Normal central canal and bilateral lateral recesses. Normal bilateral intervertebral neural foramina. Normal lumbar lordosis. Mild levoscoliosis centered at L4/L5. Normal conus medullaris that terminates at the L1/L2. Marrow regeneration suggestive of chronic hypoventilation, chronic lung disease, or chronic anemia. L1-2: Normal endplates. Normal disc height, hydration and morphology. Normal bilateral facet joints. Normal central canal and bilateral lateral recesses. Normal bilateral intervertebral neural foramina. L2-3: Normal endplates. Normal disc height, hydration and morphology. Normal bilateral facet joints. Normal central canal and bilateral lateral recesses. Normal bilateral intervertebral neural foramina. L3-4: Normal endplates. Normal disc height, hydration and morphology. Normal bilateral facet joints. Normal central canal and bilateral lateral recesses. Normal bilateral intervertebral neural foramina. L4-5: 5 mm retrolisthesis of L4 on L5 with no spinal stenosis or neural foraminal stenosis. L5-S1: Bilateral pars defects of the L5 vertebra consistent with L5 spondylolysis. 5 mm of anterolisthesis of L5 on S1 consistent with grade 1 spondylolisthesis. Mild broad disc protrusion produces mild spinal stenosis but severe bilateral neural foraminal stenosis with effacement of the exiting L5 nerve roots bilaterally. Normal visualized sacral ala. Normal visualized paraspinous soft tissue structures. MRI/Spine Lumbar (Routine) IMPRESSION: 1. L5 spondylolysis with grade 1 spondylolisthesis of L5 on S1 with mild spinal stenosis but severe bilateral neural foraminal stenosis with effacement of the L5 nerve roots bilaterally. 2. Marrow regeneration Electronically Signed: Lei Khan MD at 11:26 EDT Tel , Service support ,
== END ==
PROVIDERS: PCP Family Medicine
DX: M43.17 Spondylolisthesis, lumbosacral region (principal); M54.17 Radiculopathy, lumbosacral region; M47.817 Spondylosis without myelopathy or radiculopathy, lumbosacral region
CPT/HCPCS: 72148

== ENCOUNTER 2020-12-19 11:30 | Outpatient (RCR) | payer OTHER, SELFPAY ==
--- NOTE | 2020-10-10 15:06 | HP.PTEVAL ---
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 Date of Evaluation: 10/10/20 Physical Therapist: DANDY Parmar - Visit Plan Frequency: 2x /Week Duration: 2 Months Plan: 2X/ week for 8 weeks for PT with ALL supine and progress to sitting and standing core stability, L IT band stretching, L Hip strengthening with HEP. HEP: PT with 90/90 with heel tap to the 5 inch block on mat table - Subjective Pt had X-rays last spring had mild Spondylolithesis but she has nerve pain on the side of her R hip. It is not constant. It increases in pain with standing or walking too long. Pt reports that mid way of her calf and 3 larger toes on the R are numb every time she stands and walks. She has the feeling that water is dripping down her leg on the R side. 2 stress fractures in the vertebrea and they think that is what caused it to slip. She had a first round of PT and that did not work. They did a lot of floor exercises but it was too much to do daily. She has not done her HEP PT this week. Her MRI is Oct 17. Pt was sent here by pain clinic Dr. Pt is fine if she is sitting. She did way too much yesterday and was in a lot of pain. She uses pain as her guide. R hip and Glut is constant pain. Sitting helps to change her pain. ICE helps to soothe her pain. Pt generally does not wake her up at night. She sleeps with a pillow between her knees. Sleeping on her R side is most comfortable. She started back pain 5 years ago but progressivly getting worse. Last year this fall she was walking and running a lot. The LBP is helped with PT but nothing is helping the nerve part. - Pain back pain Pain Intensity (Out of 10): 2 Pain Intensity Range: 6, 8 R Glute/hip Pain Intensity (Out of 10): 4 Pain Intensity Range: 8 - Objective Gait: Walks with a normal gait pattern. LE MMT: R hip flex 4-/5 and L 4/5, B knee ext 4/5, B knee flex 4/5, R hip abd 4-/5 and l hip abd 4+/5, R hip ext 3-/4 and L hip ext 3+/5. pt is able to walk on heels and toes. Trunk AROM: flexion 100%, Ext 50%, SB B 75%, Rot B 75%. Patellar DTR's: 2+/3 B. SLUMP test: -B. pt has tightness on the R IT BAND and hip flexor. Good B piriformis length. Pt has tenderness along Both PSIS. Pt exhibits some weakness with PT and LE movements - Balance/Special Test Scores Oswestry Low Back Score: 18 - Goals Goal 1:: I HEP Goal Time Frame: 4-6 Weeks Goal 2:: Decrease R hip pain by 50% with standing activities Goal Time Frame: 6-8 Weeks Goal 3:: Increase R LE strength by 1/2 muscle grade (at the time of the eval: LE MMT: R hip flex 4-/5 and L 4/5, B knee ext 4/5, B knee flex 4/5, R hip abd 4-/5 and l hip abd 4+/5, R hip ext 3-/4 and L hip ext 3+/5. pt is able to walk on heels and toes) - Rehabilitation Potential Rehabilitation Potential: Good - Anticipated Interventions Patient/Client Instruction: Educate patient on: Condition, Plan of Care For the Purpose of:: To decrease pain, To improve nutrient delivery to tissue, To improve muscle performance and motor function, To increase tolerance to activity/condition/position, To improve performance and independence with ADL's, To decrease level of supervision to perform tasks, To improve ability of physical actions for home/community/work/leisure, To improve health of tissue, To decrease soft tissue restriction, To increase flexibility/ROM Therapeutic Exercise to Include: Strength training, Body mechanics, Postural training, Flexibilty training, Gait and locomotor training, Neuromotor development, Active ROM, Dynamic Lumbar Stabilization For the Purpose of:: To decrease pain, To increase ROM, To improve nutrient delivery to tissue, To improve muscle performance and motor function, To improve ability to perform ADL's, To increase tolerance to activity/condition/position, To improve performance and independence with ADL's, To decrease level of supervision to perform tasks, To improve ability of physical actions for home/community/work/leisure, To improve health of tissue, To decrease soft tissue restriction, To increase flexibility/ROM Manual Therapy Techniques to Include: Passive ROM, Soft tissue mobilization For the Purpose of:: To decrease pain, To increase ROM, To improve nutrient delivery to tissue, To improve muscle performance and motor function, To improve ability to perform ADL's Thank you for the opportunity to evaluate your patient. For Medicare and Medicare HMO plans, please review the plan of care and approve it. It will need to be FAXED BACK to us at [phone] for Medicare purposes. For Medicare only, by signing this I certify the plan of care. Please let me know if there are questions or concerns regarding this plan of care. Physician Signature: Date:
--- NOTE | 2020-12-19 12:09 | HP.PTDCSUM ---
It has been my pleasure to treat KENJI JOEL referred by MITZY LUI, with the diagnosis of Spondylosis without myelopathy or radic of L-S for a total of 10 visit(s). Discharge Date: 12/19/20 Please see the following information for a summary of their discharge status. Subjective: Pt walked a mile the other day and had no pain and no numbness. Pt reports that she did pull a muscle the other day but that is relieved. Pt is not still seeing pain management. The exercises are still challenging. back pain Pain Intensity (Out of 10): 3 R Glute/hip Pain Intensity (Out of 10): 0 % Improvement: 90 Objective/Function: Pt doing well with core stability. Pt struggles to not lift her leg into extension with prone opp arm and leg... still has weakness in planks so instructed her to do smaller number at a time. Goal 1:: I HEP Goal Progress: Goal Met Goal 2:: Decrease R hip pain by 50% with standing activities Goal Progress: Goal Met Goal 3:: Increase R LE strength by 1/2 muscle grade (at the time of the eval: LE MMT: R hip flex 4-/5 and L 4/5, B knee ext 4/5, B knee flex 4/5, R hip abd 4-/5 and l hip abd 4+/5, R hip ext 3-/4 and L hip ext 3+/5. pt is able to walk on heels and toes) Goal Progress: Goal Met Plan: DC PT to HEP Discharge Comments: DC PT to HEP If there are questions or concerns regarding this patient's physical therapy, please feel free to call me at [phone]. Thank you for the referral of this patient. Sincerely, Stacy Recinos, MPT Balance/Gait/Functional tests - Balance/Special Test Scores Oswestry Low Back Score: 2
== END 2020-12-19 12:51 | disposition home or self-care (01) ==
LOC: PT 11:30
PROVIDERS: PCP Family Medicine
DX: M47.817 Spondylosis without myelopathy or radiculopathy, lumbosacral region (principal)
CPT/HCPCS: 97110; 97161

== ENCOUNTER 2021-10-20 13:00 | Outpatient (RCR) | payer OTHER, SELFPAY ==
--- NOTE | 2021-09-07 14:46 | HP.PTEVAL_ITS ---
Patient's Visit Information KENJI JOEL is a 51 year old F referred to Physical Therapy by Dr. Pearl Mathew MD with a diagnosis of L/S radic, spondylosis, prolaspsed L disc. Date of Evaluation: 09/07/21 Physical Therapist: DANDY Parmar - Visit Plan Frequency: 1x/Week Duration: 2 Months Plan: 1X/ week for 8 weeks for HEP....for neutral spine core stability, LE strengthening, body mechanics with HEP. HEP: PT, bridges, clam shells, PT with hip april - Subjective Pt was doing wonderful and then she lifted some heavy boxes moving her mom and she bent over to wash her feet in the shower and that is when it happened. She has started to do the PT and tighten everything with walking. They did a CT scan because it has been less than a year since her last one and this showed a HD. Her DrAreli is sending her to PT and see how it goes. She is not in constant pain. She can walk a mile now and it is not painful but it is fatigued and she needs to ice. She is sleeping good. She has all her pillows around her. She has no N&T and no leg pain. She does get some pain from time to time that wraps around the R side. She reports no weakness in her leg and she can do stairs. She was bawling her eyes out for a week and could not do anything. It happened around the 18 of August. - Pain Back pain Pain Intensity (Out of 10): 0 - Objective Gait: Pt walks with normal gait pattern with slightly decreased stride and decreased trunk Rotation. She is able to walk on heels and toes without issue. Trunk AROM: Flex 75%, Ext 50%, SB R 75% and SB L 100%, ROT B 100%. Patellar DTR's: 2+/3. Slump test: -B. SLR: + on the R for slight pain. LE MMT: R hip flex 13.1 and L 15.5, knee flex R 18.1, and L 16.8, R knee ext 22.4 and L 18.7, and R hip abd 18.1 and L 18.1. Pt has a great understanding of PT and core tightening. - Balance/Special Test Scores Oswestry Low Back Score: 11 - Goals Goal 1:: I HEP Goal Time Frame: 6-8 Weeks Goal 2:: Increase trunk AROM without pain (at time of eval: Trunk AROM: Flex 75%, Ext 50%, SB R 75% and SB L 100%, ROT B 100%). Goal Time Frame: 6-8 Weeks Goal 3:: Increase LE strength (at the time of the eval: R hip flex 13.1 and L 1 5.5, knee flex R 18.1, and L 16.8, R knee ext 22.4 and L 18.7, and R hip abd 18.1 and L 18.1). Goal Time Frame: 6-8 Weeks Goal 4:: Decrease back pain to none with proper lifting techniques. Goal Time Frame: 6-8 Weeks - Rehabilitation Potential Rehabilitation Potential: Good - Anticipated Interventions Patient/Client Instruction: Educate patient on: Condition, Plan of Care For the Purpose of:: To decrease pain, To increase ROM, To improve nutrient delivery to tissue, To improve muscle performance and motor function, To improve ability to perform ADL's, To increase tolerance to activity/condition/position, To decrease level of supervision to perform tasks, To improve ability of physical actions for home/community/work/leisure, To improve health of tissue, To decrease soft tissue restriction, To increase flexibility/ROM Therapeutic Exercise to Include: Strength training, Agility training, Body mechanics, Postural training, Gait and locomotor training, Neuromotor development, Active ROM, Dynamic Lumbar Stabilization, Rosa Exercises, Scapular Strength/Stabilization For the Purpose of:: To decrease pain, To increase ROM, To improve nutrient delivery to tissue, To improve muscle performance and motor function, To improve ability to perform ADL's, To increase tolerance to activity/condition/position, To improve performance and independence with ADL's, To decrease level of supervision to perform tasks, To improve ability of physical actions for home/community/work/leisure, To improve gait and locomotor functions, To improve health of tissue Thank you for the opportunity to evaluate your patient. For Medicare and Medicare HMO plans, please review the plan of care and approve it. It will need to be FAXED BACK to us at [phone] for Medicare purposes. For Medicare only, by signing this I certify the plan of care. Please let me know if there are questions or concerns regarding this plan of care. Physician Signa ture: Date:
--- NOTE | 2021-10-20 13:33 | HP.PTDCSUM_ITS ---
It has been my pleasure to treat KENJI JOEL referred by Dr. Pearl Mathew MD, with the diagnosis of L/S radic, spondylosis, prolaspsed L disc for a total of 7 visit(s). Discharge Date: 10/20/21 Please see the following information for a summary of their discharge status. Subjective: Pt has no pain today. She is still doing her HEP and brought her o ld exercises to show her what she can slowly work into. Back pain Pain Intensity (Out of 10): 0 % Improvement: 90 Objective/Function: Trunk AROM: Flex 75%, Ext 75%, SB R 100% and SB L 100%, ROT B 100%). LE MMT: Remains the same Goal 1:: I HEP Goal Progress: Goal Met Goal 2:: Increase trunk AROM without pain (at time of eval: Trunk AROM: Flex 75%, Ext 50%, SB R 75% and SB L 100%, ROT B 100%). Goal Progress: Goal Met Goal 3:: Increase LE strength (at the time of the eval: R hip flex 13.1 and L 15.5, knee flex R 18.1, and L 16.8, R knee ext 22.4 and L 18.7, and R hip abd 18.1 and L 18.1). Goal 4:: Decrease back pain to none with proper lifting techniques. Goal Progress: Goal Met Plan: DC PT to HEP Discharge Comments: DC PT to HEP If there are questions or concerns regarding this patient's physical therapy, please feel free to call me at [phone]. Thank you for the referral of this patient. Sincerely, Stacy Recinos, MPT Balance/Gait/Functional tests - Balance/Special Test Scores Oswestry Low Back Score: 4
== END 2021-10-20 19:00 | disposition home or self-care (01) ==
LOC: PT 13:00
PROVIDERS: PCP Family Medicine; Referring Provider Family Medicine; Visit Provider Family Medicine
DX: M47.27 Other spondylosis with radiculopathy, lumbosacral region (principal); M51.26 Other intervertebral disc displacement, lumbar region
CPT/HCPCS: 97014; 97110; 97161; G0283

== ENCOUNTER → 2021-11-30 | Outpatient (CLI) | payer OTHER, SELFPAY ==
[2021-12-08 18:35] LABS: HPV APTIMA, High Risk Negative (Negative)
== END | disposition home or self-care (01) ==
LOC: LABSPEC 11:42
PROVIDERS: PCP Family Medicine; Visit Provider Student in an Organized Health Care Education/Training Program
DX: Z12.4 Encounter for screening for malignant neoplasm of cervix (principal)
CPT/HCPCS: 87624; 88175; G0145

== ENCOUNTER → 2021-12-18 | Outpatient (CLI) | payer OTHER, SELFPAY ==
--- NOTE | 2021-12-18 10:12 | BI_ITS ---
MAMMOGRAPHY - BILATERAL SCREENING REASON FOR EXAM: Female, 51 years old. Routine annual screening examination. PERTINENT HISTORY: Mother with breast cancer. Aunt with breast cancer. TECHNIQUE: Digital bilateral breast jesus (3D mammographic acquisition) in the CC and MLO projections. 2-D mediolateral oblique (MLO) and craniocaudad (CC) views of both breasts were obtained. CAD: Full Field Digital Mammography with Computer Added Detection was performed. COMPARISON: Comparison is made with prior study 09/16/2020 and 08/22/2019. FINDINGS: Breast Composition: There are scattered areas of fibroglandular density. There are no dominant masses or suspicious calcifications. Stable small benign-appearing bilateral axillary lymph nodes. No other significant abnormalities are identified. There has been no significant change since the prior study. BI/SCRN MAMM (CAD)W/JESUS BILAT IMPRESSION: Stable bilateral screening mammogram. Yearly follow-up mammogram recommended. (A) ASSESSMENT CATEGORY: BIRADS Category 2: Benign. A letter regarding these results will be sent to the patient by the facility within 30 days. Approximately 10% of breast cancers are not detected by mammography. A normal mammogram should not delay biopsy of a clinically suspicious abnormality. [id number] Electronically Signed: Bala Urrutia MD at 11:19 EST ,
== END | disposition home or self-care (01) ==
LOC: OPBI 10:11
PROVIDERS: PCP Family Medicine; Referring Provider Student in an Organized Health Care Education/Training Program; Visit Provider Student in an Organized Health Care Education/Training Program
DX: Z12.31 Encounter for screening mammogram for malignant neoplasm of breast (principal); Z80.3 Family history of malignant neoplasm of breast
CPT/HCPCS: 77063; 77067

== ENCOUNTER → 2022-12-23 | Outpatient (CLI) | payer OTHER, SELFPAY ==
--- NOTE | 2022-12-23 10:32 | BI_ITS ---
MAMMOGRAPHY - BILATERAL SCREENING REASON FOR EXAM: Female, 52 years old. Routine annual screening examination. PERTINENT HISTORY: Mother with breast cancer. Aunt with breast cancer. TECHNIQUE: Digital bilateral breast jesus (3D mammographic acquisition) in the CC and MLO projections. 2-D mediolateral oblique (MLO) and craniocaudad (CC) views of both breasts were obtained. CAD: Full Field Digital Mammography with Computer Added Detection was performed. COMPARISON: Comparison is made with prior study dated December 18, 2021 and September 16, 2020 FINDINGS: Breast Composition: There are scattered areas of fibroglandular density. There are no dominant masses or suspicious calcifications. Stable benign-appearing bilateral axillary lymph nodes. No other significant abnormalities are identified. There has been no significant change since the prior study. BI/SCRN MAMM (CAD)W/JESUS BILAT IMPRESSION: Stable bilateral screening mammogram. Yearly follow-up mammogram recommended. (A) ASSESSMENT CATEGORY: BIRADS Category 2: Benign. A letter regarding these results will be sent to the patient by the facility within 30 days. Approximately 10% of breast cancers are not detected by mammography. A normal mammogram should not delay biopsy of a clinically suspicious abnormality. [id number] Electronically Signed: Bala Urrutia MD at 11:14 EST ,
== END | disposition home or self-care (01) ==
LOC: OPBI 10:30
PROVIDERS: PCP Family Medicine; Referring Provider Obstetrics & Gynecology; Visit Provider Obstetrics & Gynecology
DX: Z12.31 Encounter for screening mammogram for malignant neoplasm of breast (principal); Z80.3 Family history of malignant neoplasm of breast
CPT/HCPCS: 77063; 77067

== ENCOUNTER 2023-06-07 09:00 | Day surgery (SDC) | payer OTHER, SELFPAY ==
[2023-06-07] VITALS (7 sets, daily range): BP systolic 92–135; BP diastolic 61–92; PULSE 85–111; RESP 16; TEMP 36.1–36.6; O2SAT 96–100; BMI 33.2
[2023-06-07] MEDS: Lactated Ringers 1,000 ML 15 ML IV (09:31)
--- NOTE | 2023-06-07 09:55 | PCM.HP.BLA ---
History and Physical Date of Admission: 06/07/23 isit Reasons: COLONOSCOPY Chief Complaint: Colonoscopy consult Mohs Surgeon/General Dermatologist Required: No Is patient in pain?: No Allergies No Known Allergies Allergy (Unverified 04/28/23 14:57) Medications famotidine 40 mg tablet (Pepcid) 20 mg PO DAILY 04/28/23 [History Confirmed 04/28/23] multivitamin (Daily Multi-Vitamin tablet) 1 tab PO DAILY 04/28/23 [History Confirmed 04/28/23] PFSH Medical History (Updated 04/28/23 @ 14:51 by Shamika Sheehan) Acid reflux Anxiety Epigastric abdominal pain Gallbladder problem Screening for intestinal cancer Seasonal allergies Surgical History History of placement of ear tubes Hx laparoscopic cholecystectomy Family History Mother Breast cancer Hypertension High cholesterol Metaplastic polyp of intestineFather High cholesterol Hypertension CancerGrandmother Cancer ovarian Grandfather Heart disease Social History Smoking Status: Former smoker alcohol intake: current alcohol intake frequency: a few times a month substance use type: does not use caffeine: No what type of physical activity do you participate in: none frequency: does not exercise HPI HPI HPI: 53-year-old female is being referred by Dr. Pearl Mathew for surgical consultation regarding a colonoscopy and a written copy my surgical consult recommendations will return to her. The patient's not had any previous screening examinations. I have previously assisted the patient with an upper endoscopy and then subsequently on October 26, 2018 with a laparoscopic cholecystectomy. It is of note that previous is that the patient on September 05, 2018 with an upper endoscopy. This was normal. She is having recurrent epigastric right upper pain problems. On October 16, 2018 I performed laparoscopically cystectomy for her. She had 6 distal small bowel was small on the cholangiogram. But she has done well since that time. Her main concern is that her mother recently from colon cancer or polyposis syndrome. Her mother tested positive for HTHL1. Mother apparently had polyposis and had an 85% colectomy. She had trouble with recurrent GI bleeding subsequently and apparently at the end she had a metastatic small bowel tumor. The patient is herself scheduled to have genetic testing July 2023. She has never had a colonoscopy. She states that she is generally done well since her cholecystectomy however occasionally after eating cookies will have some right upper quadrant discomfort. She has not had any unexpected weight loss. No bright red blood per rectum or melena. ROS General General: No weight change, appetite, fatigue, colon cancer, breast cancer or weakness HEENT HEENT: No difficulty swallowing, eye injury, eye surgery, swollen glands or hoarseness Endo Endocrine: No thyroid disease, diabetes mellitus, thyroid cancer, Hair loss, heat intolerance or cold intolerance Skin Skin: No rash or changing moles Breast Breast: No left breast lump, right breast lump, nipple discharge, breast pain, abnormal mammogram, abnormal US or breast enlargement Musc Musculoskeletal: Yes back problems; No arthritis, rheumatoid arthritis, gout or joint pain Cardio Cardiovascular: No murmur, pacemaker, heart disease, atrial fibrillation, high blood pressure, heart attack, heart stent, palpitations, shortness of breat with exertion or chest pain Psych Psychiatric: Yes anxiety; No depression or hearing voices Resp Respiratory: No shortness of breath, No sleep apnea, No cough, No COPD, No asthma, No emphysema and No wheezing Gastro Gastrointestinal: No abdominal pain, No nausea or vomiting, No diarrhea, No constipation, No blood in stool, Yes acid reflux, No hemorrhoids, No ulcers, No gallbladder problem and No black,tarry stools Andrew Hematologic: No blood thinners, No blood disorders, No bleeding, No anemia and No blood clots Neuro Neurologic: No system reviewed and no additional complaints, except as documented, No as per HPI, No abnormal gait, No abnormal hearing, No abnormal movements, No abnormal speech, No behavioral changes, No burning sensations, No confusion, No convulsions, No disequilibrium, No dizziness, No localized weakness, No frequent falls, No headache(s), No lack of coordination, No loss of vision, No memory loss, No numbness, No other visual disturbances, No radicular pain, No restless legs, No sensory deficit, No syncope, No tingling, No tremor(s), No weakness and No other Exam Const General: cooperative, comfortable and no acute distress [facility] Head: normal to inspection Eyes General: appearance normal, both eyes and all related structures Neck Neck: normal visual inspection Resp Effort & Inspection: normal respiratory effort Auscultation: clear to auscultation bilaterally Cardio Rate: regular rate Rhythm: regular rhythm GI Other: Abdomen is overweight. No focal mass. No focal tenderness. No gross hepatosplenomegaly. Remote laparoscopic incisions appear to be well-healed. Musc Cervical Spine: normal cervical lordosis Skin General: no rashes or lesions noted Neuro General: patient alert, patient awake and patient oriented x3 Extrem General: no calf tenderness Psych Appearance: grossly normal Assessment and Plan Assessment and Plan (1) Screening for intestinal cancer: Status: Acute Plan: The patient states that previously she had been placed on prednisone and NSAIDs simultaneously and developed severe epigastric pain and has residual discomfort. I think it is pertinent to pursue an esophagogastroduodenoscopy careful inspection of his much of the duodenum looking for polyps or abnormalities as well as gastric biopsies and esophageal biopsies. I additionally recommend a colonoscopy with possible intubation of the terminal ileum with biopsies for pertinent. She is aware of the technique, benefit, risk, alternatives. We will utilize monitored anesthesia care to facilitate the procedure. As noted she is scheduled in July 2023 to have consultation with genetic testing Copy: Dr. Pearl Davenport M.D., F.A.C.S. I have examined the patient and the H&P has been reviewed. There are no clinical changes since date of exam. Pradeep Davenport M.D., F.A.C.S.
--- NOTE | 2023-06-07 10:15 | IMM_PTH ---
PATIENT: KENJI JOEL LOC: EN U#:[id number] AGE/SX: 53/F ROOM: RE06/07/[address]: Dr. Pradeep Davenport MD : 1970 BED: DIS: 06/07/2023 SPEC #: [id number] RECD: 06/07/23 13:59 STATUS: DOROTA RESasha #: [id number] CASEY: 06/07/23 10:[address]: Pradeep Davenport DEPT: IMMUNOHISTOCHEMISTRY RECD BY: James Ellis ENTERED: 06/07/23 13:59 SP TYPE: IMMUNO OTHR DR: Dr. Pearl Mathew MD Tissues: B - Stomach, NOS C - Esophagus, NOS Procedures: H Pylori (initial) P53 (initial) KI-67 (add) PHYSICIAN & INSTITUTION [place] [id number] SPECIMEN INFORMATION: Tissue Source: B- Antrum biopsy, C- Distal esophagus biopsy Clinical Info: Screening for intestinal cancer Specimen Number: [id number] B&C CPT code: 21861b8,65407 METHODOLOGY: Deparaffinized sections of prefer/formalin-fixed tissue or PAP/DQ stained slides are incubated with monoclonal/polyclonal antibodies/oligonucleotide probes. Localization is made via biotin free immunoperoxidase method. Appropriate controls are performed and reacted as expected. Results on target cell population are indicated in the following table: RESULTS: ANTIBODY / CLONE RESULT Block B H Pylori (polyclonal) negative Block C P53 (DO-7) negative, null pattern Ki-67 (30-9) negative These tests were developed and their performance characteristics determined by [facility]. They may not have been cleared or approved by the U.S. Food and Drug Administration. The FDA has determined that such clearance or approval is not necessary. The above immunohistochemical/dualISH markers are ordered and reviewed by the Pathologist. INTERPRETATION: B. Antrum, biopsy: Negative for Helicobacter pylori organisms. C. Distal esophagus, biopsy: No evidence of dysplasia. AM/ 06/09/23
--- NOTE | 2023-06-07 10:15 | EGD_PTH ---
PATIENT: KENJI JOEL LOC: EN U#:[id number] AGE/SX: 53/F ROOM: RE06/07/[address]: Dr. Pradeep Davenport MD : 1970 BED: DIS: 06/07/2023 SPEC #: [id number] RECD: 06/07/23 12:48 STATUS: DOROTA KOROMA #: [id number] CASEY: 06/07/23 10:[address]: Pradeep Davenport DEPT: SURGICAL PATHOLOGY RECD BY: Abrli Mcqueen ENTERED: 06/07/23 13:42 SP TYPE: EGD BIOPSY OT DR: Dr. Pearl Mathew MD Tissues: A - Duodenum, NOS B - Gastric mucous membrane C - Esophagus, NOS D - Esophagus, NOS E - Ileum, NOS Procedures: Surgery Specimen Level IV HEADER OPERATION: Colonoscopy with biopsy, EGD with biopsy PRE-OP DIAGNOSIS: Screening for intestinal cancer TISSUE SUBMITTED: A- Duodenum biopsy, B- Antrum biopsy, C- Distal esophagus biopsy, D- Mid esophagus biopsy, E- Terminal ileum biopsy MICROSCOPIC DIAGNOSIS A. Duodenum, biopsy: Suggestive of Chyna's gland hyperplasia ad minimal non-specific chronic inflammation. B. Gastric antrum, biopsy: Mild chronic gastritis. See comment. C. Distal esophagus, biopsy: Gastroesophageal junctional mucosa with chronic inflammation. Focal goblet cell metaplasia. No evidence of dysplasia. Focal changes of reflux. See comment. D. Mid esophagus, biopsy: No pathologic change. E. Terminal ileum, biopsy: No pathologic change. AM/mr 06/08/2023 COMMENT B. The results of immunohistochemistry for Helicobacter pylori will be reported separately ([id number]). C. Immunohistochemistry ([id number]) supports the above diagnosis. Alcian blue/PAS stain with matched control supports the above diagnosis. MICROSCOPIC DESCRIPTION Slides are reviewed. GROSS DESCRIPTION A. Received in fixative is one container labeled with the patient's name and designated Duodenum biopsy. The specimen consists of multiple irregular fragments of light wise soft tissue that in aggregate measure 1.0 x 0.3 x 0.1 cm. The specimen is totally submitted in one cassette. B. Received in fixative is one container labeled with the patient's name and designated Antrum biopsy. The specimen consists of one irregular fragment of light wise soft tissue that measures 0.5 x 0.2 x 0.1 cm. The specimen is totally submitted in one cassette. C. Received in fixative is one container labeled with the patient's name and designated Distal esophagus biopsy. The specimen consists of multiple irregular fragments of light wise soft tissue that in aggregate measure 0.5 x 0.5 x 0.1 cm. The specimen is totally submitted in one cassette. D. Received in fixative is one container labeled with the patient's name and designated Mid esophagus biopsy. The specimen consists of one irregular fragment of light wise soft tissue that measures 0.5 x 0.2 x 0.1 cm. The specimen is totally submitted in one cassette. E. Received in fixative is one container labeled with the patient's name and designated Terminal ileum biopsy. The specimen consists of one irregular fragment of light wise soft tissue that measures 0.7 x 0.5 x 0.1 cm. The specimen is totally submitted in one cassette. CRISTOFER/ 06/07/2023 TC:3 CPT: 39716z3,30707
--- NOTE | 2023-06-07 11:00 | OP.CCLET_ITS ---
06/07/2023 Pearl Mathew Md Re : Upper GI endoscopy procedure for Smita Valencia Dear [place] This procedure was performed on Wednesday, June 07, 2023. My impressions and recommendations are as follows: Impressions : - LA Grade A reflux esophagitis with no bleeding. Biopsied. - Small hiatal hernia. - Erythematous mucosa in the antrum. Biopsied. - Erythematous duodenopathy. Biopsied. - Normal middle third of esophagus. Biopsied. Recommendations : - Discharge patient to home. - Resume previous diet. - Continue present medications. - Telephone my office for pathology results in 1 week. - Use Prilosec (omeprazole) 40 mg PO daily. My findings are described in the full procedure note, which is enclosed. If I can be of further assistance, please feel free to contact me at Doctor phone number(s): Work: . Sincerely, Pradeep Davenport MD 06/07/2023 11:00:23 AM This report has been signed electronically.
--- NOTE | 2023-06-07 11:00 | OP.EGD_ITS ---
Patient Name: Smita Valencia Procedure Date: 06/07/2023 10:26 AM Date of : 1970 Age: 53 Procedure: Upper GI endoscopy Indications: Epigastric abdominal pain Providers: Pradeep Davenport MD Medicines: See the Anesthesia note for documentation of the administered medications Complications: No immediate complications. Procedure: Pre-Anesthesia Assessment: - Prior to the procedure, a History and Physical was performed, and patient medications and allergies were reviewed. The patient's tolerance of previous anesthesia was also reviewed. The risks and benefits of the procedure and the sedation options and risks were discussed with the patient. All questions were answered, and informed consent was obtained. Prior Anticoagulants: The patient has taken no anticoagulant or antiplatelet agents. ASA Grade Assessment: II - A patient with mild systemic disease. After reviewing the risks and benefits, the patient was deemed in satisfactory condition to undergo the procedure. After obtaining informed consent, the endoscope was passed under direct vision. Throughout the procedure, the patient's blood pressure, pulse, and oxygen saturations were monitored continuously. The Colonoscope was introduced through the mouth, and advanced to the second part of duodenum. The upper GI endoscopy was accomplished without difficulty. The patient tolerated the procedure well. Scope In: 10:33:19 AM Scope Out: 10:40:27 AM Total Procedure Duration Time 0 hours 7 minutes 8 seconds Findings: LA Grade A (one or more mucosal breaks less than 5 mm, not extending between tops of 2 mucosal folds) esophagitis with no bleeding was found 35 cm from the incisors. Biopsies were taken with a cold forceps for histology. A small hiatal hernia was present. Diffuse mildly erythematous mucosa without bleeding was found in the gastric antrum. Biopsies were taken with a cold forceps for histology. Diffuse mildly erythematous mucosa without active bleeding and with no stigmata of bleeding was found in the duodenal bulb. Biopsies were taken with a cold forceps for histology. The middle third of the esophagus was normal. Biopsies were taken with a cold forceps for histology. Impression: - LA Grade A reflux esophagitis with no bleeding. Biopsied. - Small hiatal hernia. - Erythematous mucosa in the antrum. Biopsied. - Erythematous duodenopathy. Biopsied. - Normal middle third of esophagus. Biopsied. Recommendation: - Discharge patient to home. - Resume previous diet. - Continue present medications. - Telephone my office for pathology results in 1 week. - Use Prilosec (omeprazole) 40 mg PO daily. Procedure Code(s): --- Professional --- 92520, Esophagogastroduodenoscopy, flexible, transoral; with biopsy, single or multiple Diagnosis Code(s): --- Professional --- K21.00, Gastro-esophageal reflux disease with esophagitis, without bleeding K44.9, Diaphragmatic hernia without obstruction or gangrene K31.89, Other diseases of stomach and duodenum R10.13, Epigastric pain CPT copyright 2021 [place] [employer]. All rights reserved. The codes documented in this report are preliminary and upon care associate review may be revised to meet current compliance requirements. Pradeep Davenport MD 06/07/2023 11:00:23 AM This report has been signed electronically. Number of Addenda: 0 Note Initiated On: 06/07/2023 10:26 AM
--- NOTE | 2023-06-07 11:04 | OP.COLON_ITS ---
Patient Name: Smita Valencia Procedure Date: 06/07/2023 10:40 AM Date of : 1970 Age: 53 Procedure: Colonoscopy Indications: Screening for colorectal malignant neoplasm Providers: Pradeep Davenport MD Medicines: See the Anesthesia note for documentation of the administered medications Patient Profile: Last Colonoscopy: none. The patient's first colonoscopy is today. Complications: No immediate complications. Procedure: Pre-Anesthesia Assessment: - Prior to the procedure, a History and Physical was performed, and patient medications and allergies were reviewed. The patient's tolerance of previous anesthesia was also reviewed. The risks and benefits of the procedure and the sedation options and risks were discussed with the patient. All questions were answered, and informed consent was obtained. Prior Anticoagulants: The patient has taken no anticoagulant or antiplatelet agents. ASA Grade Assessment: II - A patient with mild systemic disease. After reviewing the risks and benefits, the patient was deemed in satisfactory condition to undergo the procedure. After I obtained informed consent, the scope was passed under direct vision. Throughout the procedure, the patient's blood pressure, pulse, and oxygen saturations were monitored continuously. The Colonoscope was introduced through the anus and advanced to the terminal ileum, with identification of the appendiceal orifice and IC valve. The colonoscopy was performed without difficulty. The patient tolerated the procedure well. The quality of the bowel preparation was good. The terminal ileum, the ileocecal valve and the appendiceal orifice were photographed. Scope In: 10:41:45 AM Scope Withdrawal Time 0 hours 7 minutes 11 seconds Scope Out: 10:52:53 AM Total Procedure Duration Time 0 hours 11 minutes 8 seconds Findings: Hemorrhoids were found on perianal exam. The terminal ileum appeared normal. Biopsies were taken with a cold forceps for histology. The colon (entire examined portion) appeared normal. Impression: - Hemorrhoids found on perianal exam. - The examined portion of the ileum was normal. Biopsied. - The entire examined colon is normal. Recommendation: - Discharge patient to home. - Resume previous diet. - Continue present medications. - Repeat colonoscopy in 10 years for screening purposes. Procedure Code(s): --- Professional --- 30010, Colonoscopy, flexible; with biopsy, single or multiple Diagnosis Code(s): --- Professional --- Z12.11, Encounter for screening for malignant neoplasm of colon K64.9, Unspecified hemorrhoids CPT copyright 2021 [place] [employer]. All rights reserved. The codes documented in this report are preliminary and upon belt glass sander review may be revised to meet current compliance requirements. Pradeep Davenport MD 06/07/2023 11:03:11 AM This report has been signed electronically. Number of Addenda: 0 Note Initiated On: 06/07/2023 10:40 AM
--- NOTE | 2023-06-07 11:04 | OP.CCLET_ITS ---
06/07/2023 Pearl Mathew Md Re : Colonoscopy procedure for Smita Valencia [place] This procedure was performed on Wednesday, June 07, 2023. My impressions and recommendations are as follows: Impressions : - Hemorrhoids found on perianal exam. - The examined portion of the ileum was normal. Biopsied. - The entire examined colon is normal. Recommendations : - Discharge patient to home. - Resume previous diet. - Continue present medications. - Repeat colonoscopy in 10 years for screening purposes. My findings are described in the full procedure note, which is enclosed. If I can be of further assistance, please feel free to contact me at Doctor phone number(s): Work: . Sincerely, Pradeep Davenport MD 06/07/2023 11:03:11 AM This report has been signed electronically.
== END 2023-06-07 12:19 | disposition home or self-care (01) ==
LOC: EN 09:02 → AC 09:04
PROVIDERS: PCP Family Medicine; Referring Provider Surgery; Visit Provider Surgery
PROC: 0DJD8ZZ Inspection of Lower Intestinal Tract, Via Natural or Artificial Opening Endoscopic (ICD-10-PCS; CPT 45378; principal; 2023-06-07 10:10)
DX: Z12.11 Encounter for screening for malignant neoplasm of colon (principal); K29.50 Unspecified chronic gastritis without bleeding; K31.89 Other diseases of stomach and duodenum; K64.9 Unspecified hemorrhoids; K21.00 Gastro-esophageal reflux disease with esophagitis, without bleeding; K44.9 Diaphragmatic hernia without obstruction or gangrene; R10.13 Epigastric pain; Z90.49 Acquired absence of other specified parts of digestive tract; Z79.899 Other long term (current) drug therapy; Z87.891 Personal history of nicotine dependence; Z80.0 Family history of malignant neoplasm of digestive organs
CPT/HCPCS: 45380; 43239; 88305; 88341; 88342; J7120; J2405

== ENCOUNTER → 2023-12-26 | Outpatient (CLI) | payer OTHER, SELFPAY ==
--- NOTE | 2023-12-26 12:24 | BI_ITS ---
MAMMOGRAPHY - BILATERAL SCREENING REASON FOR EXAM: Female, 53 years old. Routine annual screening examination. PERTINENT HISTORY: Mother with breast cancer. Aunt with breast cancer. TECHNIQUE: Digital bilateral breast jesus (3D mammographic acquisition) in the CC and MLO projections. 2-D mediolateral oblique (MLO) and craniocaudad (CC) views of both breasts were obtained. CAD: Full Field Digital Mammography with Computer Added Detection was performed. COMPARISON: Comparison is made with prior study dated December 23, 2022 and December 18, 2021. FINDINGS: Breast Composition: There are scattered areas of fibroglandular density. There are no dominant masses or suspicious calcifications. Stable bilateral fat containing axillary lymph nodes. No other significant abnormalities are identified. There has been no significant change since the prior study. BI/SCRN MAMM (CAD)W/JESUS BILAT IMPRESSION: Stable bilateral screening mammogram. Yearly follow-up mammogram recommended. (A) ASSESSMENT CATEGORY: BIRADS Category 2: Benign. A letter regarding these results will be sent to the patient by the facility within 30 days. Approximately 10% of breast cancers are not detected by mammography. A normal mammogram should not delay biopsy of a clinically suspicious abnormality. [id number] Electronically Signed: Bala Urrutia MD at 13:28 EST ,
== END | disposition home or self-care (01) ==
LOC: OPBI 12:22
PROVIDERS: PCP Family Medicine; Referring Provider Obstetrics & Gynecology; Visit Provider Obstetrics & Gynecology
DX: Z12.31 Encounter for screening mammogram for malignant neoplasm of breast (principal)
CPT/HCPCS: 77063; 77067

== ENCOUNTER → 2025-01-09 | Outpatient (CLI) | payer OTHER, SELFPAY ==
--- NOTE | 2025-01-09 08:11 | BI_ITS ---
EXAM: SCRN MAMM (CAD)W/JESUS BILAT DATE: 01/09/2025 CLINICAL HISTORY: F, Age 54 y/o , SCREENING TECHNIQUE: Procedure Code: [id number] Modality: MG Procedure: SCRN MAMM (CAD)W/JESUS BILAT COMPARISON: Prior exam(s) were compared FINDINGS: TISSUE DENSITY: The breasts are heterogeneously dense, which may obscure small masses. Bilateral Breast Mammographic Findings: No significant masses, calcifications or other abnormalities are identified. BI/SCRN MAMM (CAD)W/JESUS BILAT IMPRESSION: No mammographic evidence of malignancy in either breast. OVERALL FINAL ASSESSMENT BI-RADS 1: NEGATIVE. RECOMMENDATION: Routine annual follow-up in 1 Year Additional Recommendation none A letter with findings and recommendations will be mailed to the patient. Reading Location: [id number]
== END | disposition home or self-care (01) ==
LOC: OPBI 08:10
PROVIDERS: PCP Family Medicine; Referring Provider Obstetrics & Gynecology; Visit Provider Obstetrics & Gynecology
DX: Z12.31 Encounter for screening mammogram for malignant neoplasm of breast (principal)
CPT/HCPCS: 77063; 77067